=== PATIENT | female | born 1935 | race Caucasian/White ===

== ENCOUNTER 2016-10-24 19:46 | Inpatient (IN) | payer OTHER ==
[~2016-10-24] VITALS: Ht 157.5 cm; Wt 66.7 kg
[2016-10-24 19:53] VITALS: BP_SYST 139
--- NOTE | 2016-10-24 19:57 | NUR ---
Placed in room 08 . Placed on surveillance monitor, blood pressure machine and pulse oximeter. To gown for exam. Side rails up.
--- NOTE | 2016-10-24 20:00 | NUR ---
Patient brought to ER by BLS transport from home s/p fall. Patient is poor historian, unable to determine if mechanical or non-mechanical fall. Patient states that she "tripped over stairs in front of the house walkway" but also states that she "blacked out" denies N/V, denies dizziness, denies pain. 1 cm non-bleeding laceration to left lateral eyebrow. No family availble at this time. Alert and oriented to person and place, unlabored breathing, no other signs of trauma or injury, no signs of acute distress.
--- NOTE | 2016-10-24 20:10 | NUR ---
Theresa goode in [facility] - 10/24/16 at 2031 by HIMANSHU Patient off the unit for CT scan via ki.
--- NOTE | 2016-10-24 20:11 | NUR ---
Dr Queen at bedside examining patient
--- NOTE | 2016-10-24 20:20 | NUR ---
Patient off the unit for CT scan via gurney
--- NOTE | 2016-10-24 21:23 | NUR ---
Medication reconciliation - unable to obtained. Contacted the daughter who stated "i do not know anything about her meds"
[2016-10-24 21:37] LABS: BASOPHILS # (AUTO) 0.1 K/uL (0.0-0.2); BASOPHILS % (AUTO) 0.5 % (0.0-2.0); EOSINOPHILS # (AUTO) 0.2 K/uL (0.0-0.4); EOSINOPHILS % (AUTO) 2.1 % (0.0-4.0); HEMOGLOBIN 14.6 g/dL (12.0-16.0); LYMPHOCYTES # (AUTO) 2.9 K/uL (1.0-5.5); LYMPHOCYTES % (AUTO) 27.8 % (20.5-51.5); MEAN CORPUSCULAR HEMOGLOBIN 29 pg (27-31); MEAN CORPUSCULAR HGB CONC 33 % (32-36); MEAN CORPUSCULAR VOLUME 86 fL (79.0-98.0); MONOCYTES # (AUTO) 0.6 K/uL (0.0-1.0); MONOCYTES % (AUTO) 5.8 % (1.7-9.3); NEUTROPHILS # (AUTO) 6.8 K/uL (1.8-7.7); NEUTROPHILS % (AUTO) 63.8 % (40.0-70.0); PLATELET COUNT (AUTO) 272 K/uL (130-430); WHITE BLOOD COUNT (AUTO) 10.6 K/uL (4.8-10.8)
--- NOTE | 2016-10-24 21:40 | NUR ---
# 20 gauge angiocath placed to left hand. Use of asceptic technique. Opsite placed over site. Blood return noted. Flushed with 10 cc of normal saline. No evidence of infiltration noted. Patient tolerated well.
[2016-10-24 21:56] LABS: ANION GAP 6 (5-15); CALCIUM 8.4 mg/dL (8.4-11.0); CHLORIDE 101 mmol/L (98-107); CREATININE 0.89 mg/dL (0.55-1.30); GLUCOSE 142 mg/dL (70-99); POTASSIUM 3.5 mmol/L (3.5-5.1); SODIUM SERUM 134 mmol/L (136-145); UREA NITROGEN, BLOOD 14 mg/dL (8-21)
[2016-10-24 22:04] LABS: ALANINE AMINOTRANSFERASE 17 U/L (12-78); ALBUMIN 3.2 g/dL (3.4-4.8); ASPARTATE AMINOTRANSFERASE 19 U/L (10-37); TOTAL BILIRUBIN 0.3 mg/dL (0.0-1.0); TOTAL PROTEIN, SERUM 6.4 g/dL (6.4-8.3)
--- NOTE | 2016-10-24 22:25 | NUR ---
Patient does not meet SEPSIS protocol
--- NOTE | 2016-10-24 22:52 | NUR ---
Patient will be admitted to care of Dr Hazel, orders received from Dr Almendarez. Admitted to TELE in unit. Will go to room 135. Belongings list completed. Summary report printed. Report will be given at bedside.
--- NOTE | 2016-10-24 22:57 | NUR ---
[facility] Licensed nurse present. IV present no signs or symptoms of infiltration.
[2016-10-24 23:04] VITALS: BP_SYST 172
--- NOTE | 2016-10-24 23:04 | NUR ---
ADMISSION NOTE Received patient from ER via gurney. Patient admitted with diagnosis of Syncope. Patient is awake,confused. Patient oriented to hospital room, call light, toileting, pain management and safety-teach back done. Patient informed that Hyun will be her nurse and that their room number is A. Personal belongings checked and Belongings List documented. Call light within reach.
--- NOTE | 2016-10-24 23:20 | NUR ---
Admission Assessment Received patient from ED, AAO x3, no acute distress noted at this time. Assessment complete, blood pressure noted to be elevated, Dr Almendarez at nurse's station and made aware. Abrasion noted to left eyebrow area, pictures taken. IV noted to left hand, saline locked at this time, flushes well, no signs of infiltration noted, IV fluids to be started per MD order. Patient oriented to room and call light. Assisted up to restroom and safely back to bed. Verbally able to make needs known, call light is within reach, all fall and safety precautions in place, will continue to monitor.
[2016-10-25] VITALS (7 sets, daily range): BP systolic 140–169
[2016-10-25] MEDS ORDERED: DEXTROSE 50% JECT 50 ML DISP.SYRIN IVP PRN
[2016-10-25] MEDS: D5/0.45 NS 1,000 ML IV SCH ×2 (00:12→18:53)
[2016-10-25] MEDS: cloNIDine HCL 0.1 MG TABLET PO PRN ×2 (00:12→23:08)
[2016-10-25 01:13] LABS: BILIRUBIN,URINE NEGATIVE (NEGATIVE); CLARITY/URINE CLEAR (CLEAR); COLOR,URINE YELLOW (YELLOW); GLUCOSE,URINE NEGATIVE (NEGATIVE); KETONES,URINE NEGATIVE (NEGATIVE); LEUKOCYTE ESTERASE ,URINE 1+ (NEGATIVE); NITRITE, URINE NEGATIVE (NEGATIVE); PH,URINE 6.5 (5.0-8.0); PROTEIN URINE NEGATIVE (NEGATIVE); UROBILINOGEN,URINE 0.2 (0.2-1.0)
--- NOTE | 2016-10-25 01:44 | NUR ---
CONSULT CONSULT CALLED FOR DR. VIANNEY Taylor SPOKE WITH JERARDO CATES REASON FOR CONSULT: SYNCOPE REQUESTING CONSULT: JANDIAL NUMBER I CALLED [phone]
[2016-10-25 02:09] LABS: BLOOD, URINE TRACE (NEGATIVE)
[2016-10-25 02:11] LABS: BACTERIA,URINE FEW /HPF (None Seen); MUCUS,URINE None Seen /LPF (None Seen); RBC,URINE 0-3 /HPF (0-3)
--- NOTE | 2016-10-25 02:29 | NUR ---
RN Rounds Patient is resting quietly in bed, no acute distress noted. PRN blood pressure medication was administered earlier, upon reassessment blood pressure noted WNL. Snack provided per request. Encouraged to call with all needs. Patient made comfortable in bed. Call light is within reach, all fall and safety precautions in place, will continue to monitor.
--- NOTE | 2016-10-25 04:38 | NUR ---
RN Rounds Patient is sleeping, respirations are even and unlabored, no acute distress noted. Call light is within reach, all fall and safety precautions in place, will continue to monitor.
[2016-10-25] MEDS: INSULIN REGULAR, HUMAN 100 UNITS/ML, 10 ML VIAL (novoLIN R) SUBCUT PRN ×3 (05:46→21:18)
--- NOTE | 2016-10-25 06:35 | NUR ---
Closing Notes Patient is resting quietly in bed, no acute distress noted or complain of pain at this time. Blood sugar was assessed and insulin provided per sliding scale. Patient is stable, all needs met throughout shift. Will continue to monitor until endorsed to AM nurse at bedside.
[2016-10-25 06:50] LABS: BASOPHILS % (AUTO) 0.5 % (0.0-2.0); EOSINOPHILS # (AUTO) 0.2 K/uL (0.0-0.4); EOSINOPHILS % (AUTO) 2.6 % (0.0-4.0); HEMATOCRIT 41.2 % (36-48); HEMOGLOBIN 13.8 g/dL (12.0-16.0); LYMPHOCYTES # (AUTO) 2.8 K/uL (1.0-5.5); LYMPHOCYTES % (AUTO) 32.8 % (20.5-51.5); MEAN CORPUSCULAR HEMOGLOBIN 29 pg (27-31); MEAN CORPUSCULAR HGB CONC 34 % (32-36); MEAN CORPUSCULAR VOLUME 88 fL (79.0-98.0); MONOCYTES # (AUTO) 0.5 K/uL (0.0-1.0); MONOCYTES % (AUTO) 6.3 % (1.7-9.3); NEUTROPHILS # (AUTO) 5.1 K/uL (1.8-7.7); NEUTROPHILS % (AUTO) 57.8 % (40.0-70.0); PLATELET COUNT (AUTO) 249 K/uL (130-430); RED CELL DISTRIBUTION WIDTH 12.2 % (9.0-15.0); WHITE BLOOD COUNT (AUTO) 8.6 K/uL (4.8-10.8)
[2016-10-25 07:30] LABS: CHLORIDE 98 mmol/L (98-107); POTASSIUM 3.2 mmol/L (3.5-5.1); SODIUM SERUM 131 mmol/L (136-145)
[2016-10-25 07:31] LABS: ANION GAP 7 (5-15)
[2016-10-25 07:34] LABS: ALANINE AMINOTRANSFERASE 16 U/L (12-78); ALBUMIN 2.8 g/dL (3.4-4.8); ASPARTATE AMINOTRANSFERASE 17 U/L (10-37); CALCIUM 7.6 mg/dL (8.4-11.0); CREATININE 0.72 mg/dL (0.55-1.30); GLUCOSE 434 mg/dL (70-99); TOTAL BILIRUBIN 0.5 mg/dL (0.0-1.0); TOTAL PROTEIN, SERUM 5.8 g/dL (6.4-8.3); UREA NITROGEN, BLOOD 11 mg/dL (8-21)
--- NOTE | 2016-10-25 07:35 | NUR ---
LAB Got a call from lab to inform of critical lab value for glucose 434. Informed tech that accucheck was only 164. Tech will do a redraw.
--- NOTE | 2016-10-25 08:00 | NUR ---
AM Initial Notes Pt aaox3 with confusion and forgetfulness. No complaints of dizziness, light headedness, feeling faint, pain or discomfort. No distress noted. Bruise to left eyebrow area with a little abrasion noted. Educated about fall and safety precautions. Fall and safety precautions enforced with bed alarm armed, ID band on, 3 rails up and close to nurse's station. Encouraged to call for assistance. Call light within reach. will monitor.
--- NOTE | 2016-10-25 08:19 | NUR ---
Blood sugar re-check Blood sugar monitor 196. Patient just finished eating.
[2016-10-25] MEDS: FAMOTIDINE 20 MG TABLET PO SCH (08:24)
[2016-10-25] MEDS ORDERED: SIMV40TA2 PO (10:19)
[2016-10-25] MEDS ORDERED: PARO40TA80 PO (10:19)
[2016-10-25] MEDS ORDERED: LORA-258 PO (10:19)
[2016-10-25] MEDS ORDERED: DIPH-179 PO (10:19)
[2016-10-25] MEDS ORDERED: METO-304 (10:19)
[2016-10-25] MEDS ORDERED: HUM100IN SQ (10:19)
[2016-10-25] MEDS ORDERED: DICY10SO PO (10:19)
[2016-10-25] MEDS ORDERED: TOPI25CA PO (10:19)
[2016-10-25] MEDS ORDERED: GABA-529 PO (10:19)
--- NOTE | 2016-10-25 11:10 | NUR ---
Rounds Pt awake resting in bed. No complaints of pain or discomfort. No distress or signs of syncope. Encouraged to call for assistance. Fall and safety precautions enforced. Will monitor.
--- NOTE | 2016-10-25 14:07 | NUR ---
Rounds Pt awake resting in bed. No complaints of pain or discomfort. No distress noted. Kept comfortable. Fall and safety precautions enforced. Will monitor.
--- NOTE | 2016-10-25 14:27 | NUR ---
ATTENDING , DR STROUD CALLED RE: HIS DUPLICATE ECHO ORDER, ONE WAS JUST DONE RECENTLY (10/11/16). SPOKE TO JUDIE
--- NOTE | 2016-10-25 16:30 | NUR ---
Third Page to Dr. Hazel Third page was made to Dr. Hazel by community support worker Judy. Calling MD to inform Lab result for Potassium 3.2 and to reconcile medications.
--- NOTE | 2016-10-25 17:00 | NUR ---
Rounds Pt awake sitting up in bed with confusion. No complaints of pain or discomfort. No distress noted. Will monitor.
[2016-10-25] MEDS ORDERED: POTASSIUM CHLORIDE 20 MEQ TAB.PRT.SR PO ONE (17:15)
--- NOTE | 2016-10-25 17:15 | NUR ---
Dr. Ilir RIVERA called back. Orders and medication reconciliation will be taken cared of by .
--- NOTE | 2016-10-25 18:31 | NUR ---
Dr. Chele RIVERA inside room assessing patient.
--- NOTE | 2016-10-25 18:45 | NUR ---
Closing notes Pt awake resting in bed. No significant changes noted. Kept comfortable. Will endorse care to incoming nurse.
--- NOTE | 2016-10-25 19:47 | NUR ---
OPENING NOTE/SPOKE TO [facility] RE: CAROTID US Patient and bedside report received from day shift nurse. Patient is awake, alert and oriented. Respirations are even and unlabored with visible chest rise and fall, denies any pain or discomfort at this time. IV to left hand 20g infusing IV fluids as ordered. Plan of care discussed. Patient is refusing bilateral SCDS at this time but was educated on it's significance. Educated patient regarding safety and her increased risk for falls and how to use call light for needs. Bed alarm on. Room near nurses station. Call light to right hand. Will continue to monitor.
--- NOTE | 2016-10-25 20:45 | NUR ---
NEW IV SITE Patient accidentally pulled out IV site to left hand 20g; new IV to left forearm 20g was started by ANDREZ Purvis. Successful upon first attempt. Will continue to monitor.
--- NOTE | 2016-10-25 23:28 | NUR ---
CATAPRES/ASSISTED TO BATHROOM TO VOID Catapres was given as ordered for increased blood pressure; see EMAR. Educated patient regarding medication and potential side effects. Patient verbalized understanding but is often forgetful and needs to be reminded. Assisted patient to bathroom to void; gait is steady but weak and requires nurse assist for safety. Patient had 1 void; assisted back to bed and tolerated well. Encouraged patient to use call light for needs. Bed alarm on. Room near nurses station. Call light placed to lap. Will continue to monitor.
[2016-10-26 00:08] VITALS: BP_SYST 137
--- NOTE | 2016-10-26 00:08 | NUR ---
BLOOD PRESSURE RECHECK Late entry due to patient care. Patient's blood pressure is currently 137/61 after clonidine was given PRN for SBP > 160. See EMAR. Patient denies any pain or discomfort. Will continue to monitor.
[2016-10-26 00:39] VITALS: BP_SYST 171
--- NOTE | 2016-10-26 02:10 | NUR ---
RN ROUNDS Patient is resting quietly with her eyes closed. Pulse is 44 on tele monitor. Breathing is even and unlabored. Safety and fall precautions are in place. Bed alarm on. Room near nurses station. Call light on lap. Will continue to monitor.
[2016-10-26 03:18] VITALS: BP_SYST 146
--- NOTE | 2016-10-26 04:17 | NUR ---
RN ROUNDS Patient is resting with her eyes closed. HR is 51 on tele monitor. Safety and fall precautions in place. Bed alarm on. Call light on lap. Will continue to monitor.
--- NOTE | 2016-10-26 04:57 | NUR ---
REQUESTED WATCH Patient requested for her watch to be put back on her right wrist. Patient is forgetful and had to be reoriented to place and time. Safety and fall precautions are in place. Bed alarm on. Call light to right hand. Encouraged patient to use call light for needs. Will continue to monitor.
[2016-10-26] MEDS: INSULIN REGULAR, HUMAN 100 UNITS/ML, 10 ML VIAL (novoLIN R) SUBCUT PRN ×2 (06:16→11:35)
--- NOTE | 2016-10-26 06:50 | NUR ---
ACCUCHECK/CLOSING NOTES Blood sugar is 159, 2 units of insulin was administered as ordered. See EMAR. All needs met throughout shift. Patient is stable. No significant changes. Safety and fall precautions are in place. Bed alarm on. Call light to right hand. Room near nurses station. Report and patient will be endorsed to day shift nurse.
--- NOTE | 2016-10-26 08:15 | NUR ---
INITIAL NOTE PT SITTING UP IN BED, EATING BREAKFAST, ALERT AND ORIENTED X3, WITH EPISODES OF CONFUSION, IV FLUIDS INFUSING TO LEFT HAND AT ORDERED RATE, NO S/S OF INFILTRATION NOTED, PLAN OF CARE DISCUSSED FOR TODAY, PT VERBALIZED UNDERSTANDING, SAFETY MEASURES IN PLACE, CALL LIGHT WITHIN REACH, BED ALARM ON FOR SAFETY, WILL FOLLOW UP
[2016-10-26 08:18] VITALS: BP_SYST 136
[2016-10-26] MEDS: FAMOTIDINE 20 MG TABLET PO SCH (08:30)
--- NOTE | 2016-10-26 09:00 | NUR ---
PT ASSISTED TO RESTROOM, PER PATIENT SHE HAS LOOSE STOOL DUE TO IBS, PT REQUESTING LOMOTIL, WILL FOLLOW UP WITH
--- NOTE | 2016-10-26 10:50 | NUR ---
DR STROUD MAKING ROUNDS, NEW ORDERS RECEIVED, AWAITING REPORTS TO CHEST XRAY AND US CAROTID TO REPORT TO MD FOR POSSIBLE DISCHARGE. PATIENT AND FAMILY AWARE, WILL FOLLOW UP ON RESULTS
[2016-10-26] MEDS ORDERED: DIPHENOXYLATE HCL/ATROP SULF 2.5 MG TAB PO PRN (11:15)
--- NOTE | 2016-10-26 12:59 | NUR ---
ROUNDS PT SITTING UP IN BED, RESTING, NO S/S OF DISTRESS OR PAIN, SCDS IN PLACE, PT STATES SHE HAS NO NEEDS AT THIS TIME, AWAITING RESULTS TO US CAROTID, SAFETY MEASURES IN PLACE, WILL CONTINUE TO MONITOR CLOSELY
--- NOTE | 2016-10-26 13:30 | NUR ---
PT ASSISTED TO RESTROOM, PT STEADY, NO COMPLAINT OF LIGHTHEADEDNESS, STABLE, RETURNED TO BED, COMMONLY USED ITEMS PLACED WITH IN REACH, WILL CONTINUE TO MONITOR
--- NOTE | 2016-10-26 14:00 | NUR ---
DR STROUD PAGED TO REPORT RESULTS TO CHEST XRAY AND US CAROTID, AWARE OF RESULTS, MD STATED TO CONTINUE WITH DISCHARGE. DAUGHTER ANA, MADE AWARE OF DISCHARGE PLANS AND PT READY TO BE PICKED UP, DAUGHTER STATED SHE WANTED RN TO FOLLOW UP ON HOME HEALTH TO FOLLOW UP WITH PATIENT. DR STROUD MADE AWARE AND AGREED WITH [facility] TO FOLLOW UP. LAURI FROM [facility] CALLED AND NOTIFIED, LAURI STATED STATED SHE HAD SPOKEN WITH FAMILY PREVIOUSLY AND WAS AWARE OF THEIR WISHES, HOME HEALTH WILL FOLLOW UP WITH DAUGHTER TO ARRANGE A TIME FOR PHYSICAL THERAPY AND WELL FAIR CHECKS. 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
[2016-10-26 14:21] VITALS: BP_SYST 142
[2016-10-26 17:10] VITALS: BP_SYST 135
--- NOTE | 2016-10-27 15:23 | NUR ---
Discharge Follow Up Phone Call FLAT IRONER phoned patient, . Patient stated she was very tired. She did not make a follow up appointment with her PCP yet, but an appointment has been made with her homogenizer operator for 11/02/16 and another appointment, possibly with a radiologist, for 11/12/16. Patient's daughter transports her to her appointments and lives nearby and looks in on patient often. Patient has been using her blood glucose monitor but not today yet. FLAT IRONER encouraged her to test her sugar as patient stated it was a little high yesterday, and that was unusual.
== END 2016-10-26 16:10 | disposition home or self-care (01) | DRG 312 ==
LOC: SED 19:46 → STU 22:53
PROVIDERS: ADMIT Internal Medicine Hospice and Palliative Medicine; ATTEND Internal Medicine Hospice and Palliative Medicine
DX: R55 Syncope and collapse (principal); E11.9 Type 2 diabetes mellitus without complications; E78.00 Pure hypercholesterolemia, unspecified; I10 Essential (primary) hypertension; F03.90 Unspecified dementia, unspecified severity, without behavioral disturbance, psychotic disturbance, mood disturbance, and anxiety; W18.39XA Other fall on same level, initial encounter; Y93.89 Activity, other specified; Y92.89 Other specified places as the place of occurrence of the external cause; Y99.8 Other external cause status; Z90.49 Acquired absence of other specified parts of digestive tract; Z90.710 Acquired absence of both cervix and uterus; Z88.0 Allergy status to penicillin; Z86.73 Personal history of transient ischemic attack (TIA), and cerebral infarction without residual deficits; Z79.899 Other long term (current) drug therapy
CPT/HCPCS: 36415; 70450-TC; 71010; 80053; 81000-TC; 82947-TC; 82962; 84484; 85025; 87081; 93005; 93880; 99285; J1815

== ENCOUNTER 2019-02-28 19:10 | Emergency (ER) | payer OTHER, MEDICAID ==
[~2019-02-28] VITALS: Ht 165.1 cm; Wt 45.4 kg
[~2019-02-28 19:10] MED LIST: DICY10SO PO; DIPH-179 PO; GABA-529 PO; LORA-258 PO; METO-540; PARO40TA80 PO; SIMV40TA2 PO; TOPI25CA PO
[2019-02-28 19:30] VITALS: BP_SYST 123
--- NOTE | 2019-02-28 19:30 | NUR ---
Called [facility] and spoke with Veda in regards to who the accepting physician and room number is for Halei[facility]ha Hanks. They were unable to provide that information. Informed her that once we medically clear patient, we will be sending patient back to [facility] if there is no physician and/or room number. Veda verbalized understanding and stated she will call the nurse for that patient and will have her call me back.
--- NOTE | 2019-02-28 19:30 | NUR ---
Patient to ER bed 6 to gown for evaluation. Side rails up.
--- NOTE | 2019-02-28 19:32 | NUR ---
Pt bib BLS from [facility] for medical clearance. Pt presents with no complaints. Pt has history of dementia and psychophrenia. Will continue to monitor.
--- NOTE | 2019-02-28 20:08 | NUR ---
ER Dr. Oconnell at bedside examining patient.
--- NOTE | 2019-02-28 20:40 | NUR ---
Pt states she can give urine sample. Pt assisted to bathroom but was not able to void. Pt assisted back to bed. Side rails up, bed in lowest position.
[2019-02-28 20:44] LABS: EOSINOPHILS # (AUTO) 0.2 K/uL (0.0-0.4); HEMATOCRIT 41.8 % (36-48); LYMPHOCYTES # (AUTO) 2.1 K/uL (1.0-5.5); MONOCYTES # (AUTO) 0.7 K/uL (0.0-1.0); RED BLOOD CELL COUNT(AUTO) 4.67 MIL/uL (4.2-6.2)
[2019-02-28 20:53] LABS: ANION GAP 6 (5-15); BASOPHILS % (AUTO) 0.2 % (0.0-2.0); CALCIUM 9.2 mg/dL (8.4-11.0); CHLORIDE 103 mmol/L (98-107); CREATININE 0.73 mg/dL (0.55-1.30); EOSINOPHILS % (AUTO) 2.7 % (0.0-4.0); GLUCOSE 116 mg/dL (70-99); HEMOGLOBIN 14.7 g/dL (12.0-16.0); LYMPHOCYTES % (AUTO) 32.2 % (20.5-51.5); MEAN CORPUSCULAR HEMOGLOBIN 32 pg (27-31); MEAN CORPUSCULAR HGB CONC 35 % (32-36); MEAN CORPUSCULAR VOLUME 89 fL (79.0-98.0); MONOCYTES % (AUTO) 10.1 % (1.7-9.3); NEUTROPHILS # (AUTO) 3.6 K/uL (1.8-7.7); NEUTROPHILS % (AUTO) 54.8 % (40.0-70.0); PLATELET COUNT (AUTO) 212 K/uL (130-430); RED CELL DISTRIBUTION WIDTH 13.5 % (9.0-15.0); SODIUM SERUM 137 mmol/L (136-145); UREA NITROGEN, BLOOD 17 mg/dL (8-21); WHITE BLOOD COUNT (AUTO) 6.5 K/uL (4.8-10.8)
[2019-02-28 21:02] LABS: ALANINE AMINOTRANSFERASE 32 U/L (12-78); ALBUMIN 3.7 g/dL (3.4-4.8); ASPARTATE AMINOTRANSFERASE 15 U/L (10-37); TOTAL BILIRUBIN 0.3 mg/dL (0.0-1.0)
[2019-02-28 21:05] LABS: ACETAMINOPHEN < 1 ug/mL (1-30); ALCOHOL, BLOOD < 3 mg/dL (<10)
[2019-02-28 21:07] LABS: CHOLESTEROL 172 mg/dL (<200); HDL CHOLESTEROL 53 mg/dL (>55); LDL CHOLESTEROL 99 mg/dL (<100); TRIGLYCERIDES 113 mg/dL (30-150)
--- NOTE | 2019-02-28 21:30 | NUR ---
# 16 FR In and Out catheter with use of sterile technique. Immediate return of 300 ml yellow urine noted. Urine sample collected and sent to lab. Pt tolerated procedure well. Patient unable to toilet self.
[2019-02-28 21:37] LABS: BILIRUBIN,URINE NEGATIVE (NEGATIVE); BLOOD, URINE NEGATIVE (NEGATIVE); CLARITY/URINE CLEAR (CLEAR); COLOR,URINE YELLOW (YELLOW); GLUCOSE,URINE NEGATIVE (NEGATIVE); KETONES,URINE NEGATIVE (NEGATIVE); LEUKOCYTE ESTERASE ,URINE NEGATIVE (NEGATIVE); NITRITE, URINE NEGATIVE (NEGATIVE); PROTEIN URINE NEGATIVE (NEGATIVE); UROBILINOGEN,URINE 0.2 (0.2-1.0)
[2019-02-28 21:49] LABS: BARBITURATE, URINE NEGATIVE (NEG <=200); BENZODIAZEPINE, URINE NEGATIVE (NEG <=150); CANNABINOID, URINE NEGATIVE (NEG <=50); COCAINE, URINE NEGATIVE (NEG <=150); METHAMPHETAMINES SCREEN,URINE NEGATIVE (NEG <=500); OPIATE, URINE NEGATIVE (NEG <=100); PHENCYCLIDINE SCREEN,URINE NEGATIVE (NEG <=25); UR TRICYCLIC ANTIDEPRESSANTS POSITIVE (NEG <=300); URINE AMPHETAMINE NEGATIVE (NEG <=500); URINE METHADONE NEGATIVE (NEG <=200); URINE OXYCODONE SCREEN NEGATIVE (NEG <=100); URINE PROPOXYPHENE SCREEN NEGATIVE (NEG <=300)
--- NOTE | 2019-02-28 22:00 | NUR ---
Pt resting in bed with no complaints. Will continue to monitor.
--- NOTE | 2019-02-28 22:58 | NUR ---
Pt resting in bed with no complaints. Transportation has been called. Will continue to monitor.
--- NOTE | 2019-03-01 00:04 | NUR ---
Report called to Caroline Sapp at [facility].
[2019-03-01 00:05] VITALS: BP_SYST 123
--- NOTE | 2019-03-01 00:05 | NUR ---
Patient given written and verbal discharge instructions and verbalizes understanding. ER MD Oconnell discussed with patient the results and treatment provided. Patient in stable condition. ID arm band removed. Opportunity for questions provided and answered. Medication side effect fact sheet provided.
== END 2019-03-01 00:05 ==
LOC: SED 19:10
DX: R45.1 Restlessness and agitation (principal); F03.90 Unspecified dementia, unspecified severity, without behavioral disturbance, psychotic disturbance, mood disturbance, and anxiety; F20.9 Schizophrenia, unspecified; I10 Essential (primary) hypertension
CPT/HCPCS: 36415; 80053; 80061; 80307; 81003; 83036; 84484; 85025; 87081; 93005; 99285; G0480; G0481; G0482